=== PATIENT | female | born 1970 | race Caucasian/White ===

== ENCOUNTER 2017-11-03 15:50 | Outpatient (CLI) | payer OTHER ==
[2017-11-03 16:33] LABS: eGFR (Non-African) > 60
[2017-11-03 21:11] LABS: BASO % 0.4 % (0.0-1.5); EOS % 0.8 % (0.0-6.8); LYMPH ABS # 3.31 thou/uL (0.60-4.00); MCH. 29.4 pg (28.0-34.0); MCV 89.2 fL (80.0-100.0); MONOCYTE % 5.9 % (0.0-11.0); MONOCYTE ABS # 0.95 thou/uL (0.00-0.90); PLATELET COUNT 531 thou/uL (130-400)
== END 2017-11-03 15:53 ==
LOC: LAB 15:50
PROVIDERS: ATTEND Family Medicine
DX: R50.9 Fever, unspecified (principal)
CPT/HCPCS: 36415; 80053; 85025; 86618; 86663; 86664; 86665; 86666; 86757